=== PATIENT | male | born 1995 | race Caucasian/White ===

== ENCOUNTER 2020-07-08 15:27 | Emergency (ER) | payer OTHER ==
[~2020-07-08] VITALS: Ht 188 cm; Wt 90.7 kg
[2020-07-08 15:35] VITALS: BP 133/84
[2020-07-08] MEDS ORDERED: MUPI22OI2 TP (15:48)
[2020-07-08] MEDS ORDERED: SULF1TAB48 PO (15:48)
[2020-07-08] MEDS ORDERED: SULFAMETH/TRIMETH 800/160 MG 1 UDTAB TABLET ONE (15:56)
[2020-07-08] MEDS ORDERED: TDAP [DIPH/PERTUSSIS/TET] 0.5 ML VIAL IM ONE (15:56)
[2020-07-08] MEDS: SULFAMETH/TRIMETH 800/160 MG 1 UDTAB TABLET PO ONE (16:01)
[2020-07-08] MEDS: TDAP [DIPH/PERTUSSIS/TET] 0.5 ML VIAL IM ONE (16:01)
== END 2020-07-08 16:22 | disposition home or self-care (01) ==
LOC: ER 15:33
DX: L08.9 Local infection of the skin and subcutaneous tissue, unspecified (principal)
CPT/HCPCS: 90715

== ENCOUNTER 2021-02-18 06:36 | Emergency (ER) | payer OTHER ==
[~2021-02-18] VITALS: Ht 167.6 cm; Wt 86.2 kg
[~2021-02-18 06:36] MED LIST: MUPI22OI2 TP; SULF1TAB48 PO
[2021-02-18 06:49] VITALS: BP 145/91
[2021-02-18] MEDS ORDERED: FLUC100T8 PO (06:58)
[2021-02-18] MEDS ORDERED: SULF1TAB48 PO (06:58)
--- NOTE | 2021-02-18 07:02 | NUR ---
Patient discharged to home in stable condition. Written and verbal after care instructions given. Patient verbalizes understanding of instruction.
== END 2021-02-18 07:02 | disposition home or self-care (01) ==
LOC: ER 06:44
DX: R21 Rash and other nonspecific skin eruption (principal); G47.00 Insomnia, unspecified; Z59.00 Homelessness unspecified; Z60.2 Problems related to living alone; Z79.899 Other long term (current) drug therapy

== ENCOUNTER 2021-11-08 07:01 | Emergency (ER) | payer OTHER ==
[~2021-11-08] VITALS: Ht 188 cm; Wt 74.8 kg
[~2021-11-08 07:01] MED LIST changes: +FLUC100T8 PO
--- NOTE | 2021-11-08 07:15 | NUR ---
BIBS C/O RASH ON BILATERAL THIGHS X3 WEEKS. PT A/OX4. TOLERATING R/A WELL WITH NO SOB.
--- NOTE | 2021-11-08 07:25 | NUR ---
PT SEEN BY DR. DALTON AT BEDSIDE
[2021-11-08] MEDS ORDERED: CLOB15CR4 TP (07:38)
[2021-11-08 07:46] VITALS: BP 120/78
--- NOTE | 2021-11-08 07:50 | NUR ---
Patient discharged to home in stable condition. Written and verbal after care instructions given. Patient verbalizes understanding of instruction.
== END 2021-11-08 07:48 | disposition home or self-care (01) ==
LOC: ER 07:01
DX: R21 Rash and other nonspecific skin eruption (principal); Z59.00 Homelessness unspecified; Z79.899 Other long term (current) drug therapy